=== PATIENT | male | born 1975 | race Caucasian/White ===

== ENCOUNTER 2023-05-02 14:17 | Outpatient (RCR) | payer OTHER, SELFPAY ==
[2023-04-05 15:12] LABS: Hematocrit 51.5 % (39.0-52.0)
[2023-04-05 15:28] VITALS: BP 134/76
[2023-04-05 15:48] VITALS: BP 114/73; BP 126/69
[2023-05-02 14:25] VITALS: BP 163/69
[2023-05-02 14:26] LABS: Hematocrit 49.6 % (39.0-52.0); Hemoglobin 16.4 g/dL (13.0-18.0)
[2023-05-02 14:40] VITALS: BP 143/74
[2023-05-02 14:50] VITALS: BP 137/72
== END 2023-05-03 23:59 | disposition home or self-care (01) ==
LOC: OID 14:17
PROVIDERS: ATTENDING PHYSICIAN Plastic Surgery
DX: R07.9 Chest pain, unspecified (principal); D75.1 Secondary polycythemia (principal); E29.1 Testicular hypofunction; R42 Dizziness and giddiness; R06.02 Shortness of breath; R53.82 Chronic fatigue, unspecified; Z79.52 Long term (current) use of systemic steroids; R53.83 Other fatigue; R79.89 Other specified abnormal findings of blood chemistry
CPT/HCPCS: 36415; 85014; 85018; 99195

== ENCOUNTER 2023-06-07 14:29 | Outpatient (RCR) | payer OTHER, SELFPAY ==
[2023-06-07 14:36] LABS: Hematocrit 48.5 % (39.0-52.0); Hemoglobin 15.9 g/dL (13.0-18.0)
[2023-06-07 14:45] VITALS: BP 118/63
[2023-06-07 15:03] VITALS: BP 122/57
[2023-06-07 15:05] VITALS: BP 113/70
== END 2023-06-08 09:10 | disposition home or self-care (01) ==
LOC: OID 14:29
PROVIDERS: ATTENDING PHYSICIAN Plastic Surgery
DX: R07.9 Chest pain, unspecified (principal); R42 Dizziness and giddiness; R06.02 Shortness of breath; E29.1 Testicular hypofunction; R53.82 Chronic fatigue, unspecified; Z79.52 Long term (current) use of systemic steroids; R53.83 Other fatigue; R79.89 Other specified abnormal findings of blood chemistry
CPT/HCPCS: 36415; 85014; 85018; 99195

== ENCOUNTER 2023-07-26 14:39 | Outpatient (RCR) | payer OTHER, SELFPAY ==
[2023-07-26 14:47] LABS: Hematocrit 48.5 % (39.0-52.0)
[2023-07-26 14:55] VITALS: BP 145/82
[2023-07-26 15:21] VITALS: BP 123/84
== END 2023-07-27 08:26 | disposition home or self-care (01) ==
LOC: OID 14:39
PROVIDERS: ATTENDING PHYSICIAN Plastic Surgery
DX: R07.9 Chest pain, unspecified (principal); R42 Dizziness and giddiness; R06.02 Shortness of breath; E29.1 Testicular hypofunction; R53.82 Chronic fatigue, unspecified; Z79.52 Long term (current) use of systemic steroids; R53.83 Other fatigue; R79.89 Other specified abnormal findings of blood chemistry
CPT/HCPCS: 36415; 85014; 85018; 99195

== ENCOUNTER 2023-09-27 14:21 | Outpatient (RCR) | payer OTHER, SELFPAY ==
[2023-09-27 14:27] LABS: Hematocrit 51.5 % (39.0-52.0)
[2023-09-27 14:40] VITALS: BP 136/78
[2023-09-27 14:52] VITALS: BP 134/81
[2023-09-27 15:01] VITALS: BP 130/76
== END 2023-09-28 10:21 | disposition home or self-care (01) ==
LOC: OID 14:21
PROVIDERS: ATTENDING PHYSICIAN Plastic Surgery
DX: D75.1 Secondary polycythemia (principal); R42 Dizziness and giddiness; E29.1 Testicular hypofunction; R06.02 Shortness of breath; R07.9 Chest pain, unspecified; R53.82 Chronic fatigue, unspecified; Z79.52 Long term (current) use of systemic steroids; R53.83 Other fatigue; R79.89 Other specified abnormal findings of blood chemistry
CPT/HCPCS: 36415; 85014; 85018; 99195

== ENCOUNTER 2023-12-05 14:23 | Outpatient (RCR) | payer OTHER, SELFPAY ==
[2023-12-05 14:30] VITALS: BP 133/63
[2023-12-05 14:31] LABS: Hematocrit 53.8 % (39.0-52.0); Hemoglobin 17.7 g/dL (13.0-18.0)
[2023-12-05 14:50] VITALS: BP 132/74
[2023-12-05 15:00] VITALS: BP 125/74
== END 2023-12-06 08:54 | disposition home or self-care (01) ==
LOC: OID 14:23
PROVIDERS: ATTENDING PHYSICIAN Plastic Surgery
DX: R07.9 Chest pain, unspecified (principal); R42 Dizziness and giddiness; R06.02 Shortness of breath; E29.1 Testicular hypofunction; R53.82 Chronic fatigue, unspecified; Z79.52 Long term (current) use of systemic steroids; R53.83 Other fatigue; R79.89 Other specified abnormal findings of blood chemistry
CPT/HCPCS: 36415; 85014; 85018; 99195

== ENCOUNTER 2024-02-07 15:08 | Outpatient (RCR) | payer OTHER, SELFPAY ==
[2024-02-07 15:16] LABS: Hematocrit 55.3 % (39.0-52.0); Hemoglobin 18.6 g/dL (13.0-18.0)
[2024-02-07 15:27] VITALS: BP 154/94
[2024-02-07 15:48] VITALS: BP 154/93
[2024-02-07 15:49] VITALS: BP 165/92
== END 2024-02-08 10:36 | disposition home or self-care (01) ==
LOC: OID 15:08
PROVIDERS: ATTENDING PHYSICIAN Plastic Surgery
DX: D75.1 Secondary polycythemia (principal); R42 Dizziness and giddiness; E78.5 Hyperlipidemia, unspecified; R06.02 Shortness of breath; E29.1 Testicular hypofunction; R07.9 Chest pain, unspecified; R53.82 Chronic fatigue, unspecified; Z79.52 Long term (current) use of systemic steroids; R53.83 Other fatigue; R79.89 Other specified abnormal findings of blood chemistry
CPT/HCPCS: 36415; 85014; 85018; 99195

== ENCOUNTER 2024-03-25 14:21 | Outpatient (RCR) | payer OTHER, SELFPAY ==
[2024-03-25 14:31] LABS: Hematocrit 53.1 % (39.0-52.0); Hemoglobin 17.8 g/dL (13.0-18.0)
[2024-03-25 14:35] VITALS: BP 130/65
[2024-03-25 15:05] VITALS: BP 124/65
[2024-03-25 15:10] VITALS: BP 125/69
== END 2024-03-26 09:06 | disposition home or self-care (01) ==
LOC: OID 14:21
PROVIDERS: ATTENDING PHYSICIAN Plastic Surgery
DX: R07.9 Chest pain, unspecified (principal); R42 Dizziness and giddiness; R06.02 Shortness of breath; E29.1 Testicular hypofunction; R53.82 Chronic fatigue, unspecified; Z79.52 Long term (current) use of systemic steroids; R53.83 Other fatigue; R79.89 Other specified abnormal findings of blood chemistry
CPT/HCPCS: 36415; 85014; 85018; 99195

== ENCOUNTER 2024-05-06 14:21 | Outpatient (RCR) | payer OTHER, SELFPAY ==
[2024-05-06 14:33] LABS: Hematocrit 53.2 % (39.0-52.0); Hemoglobin 17.4 g/dL (13.0-18.0)
[2024-05-06 14:40] VITALS: BP 138/74
[2024-05-06 14:55] VITALS: BP 135/76
[2024-05-06 15:00] VITALS: BP 128/84
== END 2024-05-07 09:35 | disposition home or self-care (01) ==
LOC: OID 14:21
PROVIDERS: ATTENDING PHYSICIAN Plastic Surgery
DX: R79.89 Other specified abnormal findings of blood chemistry (principal); R07.9 Chest pain, unspecified; R42 Dizziness and giddiness; R06.02 Shortness of breath; E29.1 Testicular hypofunction; R53.82 Chronic fatigue, unspecified; Z79.52 Long term (current) use of systemic steroids; R53.83 Other fatigue
CPT/HCPCS: 36415; 85014; 85018; 99195

== ENCOUNTER 2024-07-01 14:19 | Outpatient (RCR) | payer OTHER, SELFPAY ==
[2024-07-01 14:37] LABS: Hematocrit 52.7 % (39.0-52.0); Hemoglobin 17.4 g/dL (13.0-18.0)
[2024-07-01 14:45] VITALS: BP 146/95
[2024-07-01 14:50] VITALS: BP 133/80
[2024-07-01 14:55] VITALS: BP 127/88
== END 2024-07-01 23:59 | disposition home or self-care (01) ==
LOC: OID 14:19
PROVIDERS: ATTENDING PHYSICIAN Plastic Surgery
DX: R07.9 Chest pain, unspecified (principal); R42 Dizziness and giddiness; R06.02 Shortness of breath; E29.1 Testicular hypofunction; R53.82 Chronic fatigue, unspecified; Z79.52 Long term (current) use of systemic steroids; R53.83 Other fatigue; R79.89 Other specified abnormal findings of blood chemistry
CPT/HCPCS: 36415; 85014; 85018; 99195

== ENCOUNTER 2024-09-02 14:22 | Outpatient (RCR) | payer OTHER, SELFPAY ==
[2024-09-02 14:55] LABS: Hematocrit 53.1 % (39.0-52.0); Hemoglobin 17.6 g/dL (13.0-18.0)
[2024-09-02 15:06] VITALS: BP 146/83
[2024-09-02 15:25] VITALS: BP 134/80
== END 2024-09-03 11:17 | disposition home or self-care (01) ==
LOC: OID 14:22
PROVIDERS: ATTENDING PHYSICIAN Plastic Surgery
DX: R07.9 Chest pain, unspecified (principal); R42 Dizziness and giddiness; R06.02 Shortness of breath; E29.1 Testicular hypofunction; R53.82 Chronic fatigue, unspecified; Z79.52 Long term (current) use of systemic steroids; R53.83 Other fatigue; R79.89 Other specified abnormal findings of blood chemistry
CPT/HCPCS: 36415; 85014; 85018; 99195